=== PATIENT | male | born 1995 | race Caucasian/White ===

== ENCOUNTER 2018-09-13 21:31 | Emergency (ER) | payer BC, SELFPAY ==
[2018-09-13] MEDS ORDERED: Ibuprofen 800 MG TAB ONE (22:58)
[2018-09-13] MEDS ORDERED: Lidocaine 1% (PF) 30 ML VIAL ONE (22:58)
[2018-09-13] MEDS ORDERED: Adacel (T-DAP) 0.5 ML SYRINGE ONE ×2 (22:58→23:10)
== END 2018-09-13 23:46 | disposition home or self-care (01) ==
LOC: ERS 21:31
DX: S61.511A Laceration without foreign body of right wrist, initial encounter (principal); F17.210 Nicotine dependence, cigarettes, uncomplicated; W26.8XXA Contact with other sharp object(s), not elsewhere classified, initial encounter
CPT/HCPCS: 12002; 90471; 90715; J2001